=== PATIENT | male | born 1990 | race Caucasian/White ===

== ENCOUNTER 2022-01-19 16:40 | Emergency (ER) | payer OTHER ==
[~2022-01-19] VITALS: Ht 177.8 cm; Wt 68.0 kg
[2022-01-19 17:03] VITALS: BP 122/76
--- NOTE | 2022-01-19 17:27 | NUR ---
PATIENT BIB POLICE DEPT. PATIENT EXAMINED BY DR. HOFFMAN. PATIENT MEDICALLY CLEARED AND RELEASED IN CUSTODY IN STABLE CONDITION. ORIGINAL PRE-BOOK FORM GIVEN TO OFFICER [facility] #[id number]. Addendum: 01/19/22 at 1818 by [email or web address]
== END 2022-01-19 17:27 ==
LOC: MED 16:40
DX: T14.8XXA Other injury of unspecified body region, initial encounter (principal); F17.200 Nicotine dependence, unspecified, uncomplicated; Z98.890 Other specified postprocedural states; Z02.89 Encounter for other administrative examinations; W19.XXXA Unspecified fall, initial encounter; Y93.89 Activity, other specified; Y92.89 Other specified places as the place of occurrence of the external cause; Y99.8 Other external cause status
CPT/HCPCS: 99283

== ENCOUNTER 2023-08-13 05:24 | Observation (INO) | payer OTHER ==
[2023-08-13] VITALS (8 sets, daily range): BP systolic 104–127; BP diastolic 62–89; PULSE 75–96; RESP 15–22; TEMP 98.7; O2SAT 97–100
[~2023-08-13] VITALS: Ht 180.3 cm; Wt 72.6 kg
[2023-08-13] MEDS ORDERED: ALBUTEROL SULFATE/IPRATROPIU 3 ML SOL IH ONE (05:31)
[2023-08-13] MEDS ORDERED: methylPREDNISolone SS 125 MG in WATER STERILE 2 ML IV ONE (05:35)
[2023-08-13] MEDS: ALBUTEROL SULFATE/IPRATROPIU 3 ML SOL IH ONE ×2 (05:52→08:06)
[2023-08-13] MEDS: ALBUTEROL 0.083% 2.5 MG/3 ML NEBU INH ONE (05:53)
[2023-08-13] MEDS: NACL 0.9% 1,000 ML IV ONE (05:54)
[2023-08-13] MEDS: MAG SULF 2000 MG/WATER PREMIX 50 ML IV ONE (05:58)
[2023-08-13 07:10] LABS: BASOPHILS # (AUTO) 0.1 K/uL (0.00-0.22); BASOPHILS % (AUTO) 1.2 % (0.0-2.0); EOSINOPHILS # (AUTO) 0.5 K/uL (0-0.4); EOSINOPHILS % (AUTO) 7.3 % (0.0-4.0); HEMATOCRIT 39.4 % (36-52); HEMOGLOBIN 13.1 g/dL (12.0-18.0); LYMPHOCYTES # (AUTO) 1.2 K/uL (2.0-11.5); LYMPHOCYTES % (AUTO) 17.4 % (20.5-51.1); MEAN CORPUSCULAR HEMOGLOBIN 28 pg (27-31); MEAN CORPUSCULAR HGB CONC 33 g/dL (33-37); MEAN CORPUSCULAR VOLUME 85.2 fL (80-94); MONOCYTES # (AUTO) 0.4 K/uL (0.8-1.0); MONOCYTES % (AUTO) 6.3 % (1.7-9.3); NEUTROPHILS # (AUTO) 4.8 K/uL (1.8-7.7); NEUTROPHILS % (AUTO) 67.8 % (42.2-75.2); PLATELET COUNT (AUTO) 371 K/uL (140-450); RED BLOOD CELL COUNT(AUTO) 4.62 MIL/uL (4.20-6.10); RED CELL DISTRIBUTION WIDTH 14.4 % (11.6-13.7)
[2023-08-13 07:45] LABS: ALBUMIN 3.6 g/dL (3.4-5.0); ANION GAP 10.1 (8-16); CALCIUM 8.7 mg/dL (8.5-10.1); CARBON DIOXIDE 30.7 mmol/L (21-32); CREATININE 0.7 mg/dL (0.6-1.3); POTASSIUM 3.8 mmol/L (3.5-5.1); TOTAL BILIRUBIN 0.2 mg/dL (0.0-1.0); TOTAL PROTEIN, SERUM 7.5 g/dL (6.4-8.2)
[2023-08-13] MEDS: methylPREDNISolone SS 125 MG/2 ML VIAL IVP SCH (08:07)
[2023-08-13] MEDS ORDERED: KCL 20 MEQ IN 100 mL PREMIX 200 ML IV PRN (08:35)
[2023-08-13] MEDS ORDERED: ACETAMINOPHEN 325 MG TAB PO PRN (08:35)
[2023-08-13] MEDS ORDERED: POTASSIUM CHLORIDE 10 MEQ TABER PO PRN (08:35)
[2023-08-13] MEDS ORDERED: MAG SULF 2000 MG/WATER PREMIX 50 ML IV PRN (08:35)
[2023-08-13] MEDS ORDERED: HYDROcodone/APAP 5/325 MG 1 TAB TAB PO PRN (08:35)
[2023-08-13] MEDS ORDERED: MORPHINE SULFATE 4 MG/ML SYR IVP PRN (08:35)
[2023-08-13] MEDS ORDERED: ONDANSETRON 4 MG/2 ML VIAL IVP PRN (08:35)
[2023-08-13] MEDS ORDERED: AZITHROMYCIN 500 MG INJ VIAL IV ONE ×2 (09:09→09:12)
[2023-08-13] MEDS: NACL 0.9% 1,000 ML IV SCH (09:16)
[2023-08-13] MEDS: AZITHROMYCIN 500 MG in DEXTROSE 5% 250 ML IV SCH (09:17)
[2023-08-13] MEDS: methylPREDNISolone SS 40 MG/ML VIAL IVP SCH (12:18)
[2023-08-13 12:50] LABS: AMPHETAMINE, URINE POSITIVE ng/ml (NEG <=1000); BARBITURATE, URINE NEGATIVE ng/ml (NEG <=200); BENZODIAZEPINE, URINE NEGATIVE ng/mL (NEG <=200); CANNABINOID, URINE NEGATIVE ng/mL (NEG <=50); COCAINE, URINE NEGATIVE ng/mL (NEG <=300); OPIATE, URINE NEGATIVE ng/mL (NEG <=2000); PHENCYCLIDINE SCREEN,URINE NEGATIVE ng/mL (NEG <=25)
[2023-08-13] MEDS: ALBUTEROL SULFATE/IPRATROPIU 3 ML SOL IH SCH (13:13)
[2023-08-13] MEDS ORDERED: ALBU0.0912 INH (18:16)
[2023-08-13] MEDS ORDERED: METH4TAB1 PO (18:16)
== END 2023-08-13 18:15 | disposition home or self-care (01) ==
LOC: MED 05:24 → MTU 08:36
PROVIDERS: ADMIT Student in an Organized Health Care Education/Training Program; ATTEND Student in an Organized Health Care Education/Training Program
DX: J45.901 Unspecified asthma with (acute) exacerbation (principal); J96.01 Acute respiratory failure with hypoxia; E86.0 Dehydration; F15.129 Other stimulant abuse with intoxication, unspecified; Z79.899 Other long term (current) drug therapy
CPT/HCPCS: 36415; 71045; 80048; 80076; 80305; 85025; 87040; 94640; 94760; 96365; 96366; 96367; 96372; 96375; 96376; 99291; G0378; J0456; J1644; J2920; J2930; J3475; J7060; Q0092